=== PATIENT | female | born 1995 | race Caucasian/White ===

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

== ENCOUNTER 2018-05-18 15:33 | Emergency (ER) | payer OTHER ==
[2018-05-18 16:34] LABS: microscopic required? NO
[2018-05-18 16:58] LABS: BASOPHIL % 0.5 % (0-2); PLATELET COUNT 251 x10^3mcL (130-400); RED CELL DISTRIBUTION WIDTH 14.2 % (11.5-14.5)
[2018-05-18 16:59] LABS: urine erythrocyte NEGATIVE (NEGATIVE)
[2018-05-18 17:20] LABS: CALCIUM 9.4 mg/dL (8.5-10.1); CARBON DIOXIDE 25.8 mmol/L (21-32); CHLORIDE SERUM 102 mmol/L (98-107); CREATININE SERUM 0.5 mg/dL (0.6-1.0); GFR1 > 60 mL/min; GLUCOSE SERUM 84 mg/dL (74-106); POTASSIUM SERUM 3.8 mmol/L (3.5-5.1); SODIUM SERUM 138 mmol/L (136-145)
[2018-05-18 17:24] LABS: ALBUMIN 4.7 g/dL (3.4-5.0); ALKALINE PHOSPHATASE 62 U/L (46-116); ALT/SGPT 19 U/L (14-59); AMYLASE 76 U/L (25-115); AST/SGOT 11 U/L (15-37); BILIRUBIN TOTAL 0.5 mg/dL (0.20-1.00); CHOLESTEROL 141 mg/dL (<200); LIPASE 88 IU/L (73-393)
[2018-05-18 17:33] LABS: HDL CHOLESTEROL 82 mg/dL (40-60); TOTAL PROTEIN, SERUM 8.5 g/dL (6.4-8.2)
[2018-05-18 19:28] VITALS: BP 114/75
== END 2018-05-18 19:28 | disposition home or self-care (01) ==
LOC: ED 15:33
PROVIDERS: Emergency Medicine
DX: R10.13 Epigastric pain (principal); R11.10 Vomiting, unspecified
CPT/HCPCS: J1885; J7030

== ENCOUNTER 2019-06-12 08:58 | Emergency (ER) | payer OTHER ==
[~2019-06-12] VITALS: Ht 149.9 cm; Wt 46.7 kg
[2019-06-12 09:09] VITALS: Ht 149.9 cm; Wt 46.7 kg
[2019-06-12 10:09] LABS: CALCIUM 9.6 mg/dL (8.5-10.1); CARBON DIOXIDE 26.9 mmol/L (21-32); CHLORIDE SERUM 105 mmol/L (98-107); CREATININE SERUM 0.5 mg/dL (0.6-1.0); GFR1 > 60 mL/min; GLUCOSE SERUM 104 mg/dL (74-106); POTASSIUM SERUM 4.2 mmol/L (3.5-5.1); SODIUM SERUM 142 mmol/L (136-145)
[2019-06-12 10:14] LABS: ALBUMIN 4.5 g/dL (3.4-5.0); ALKALINE PHOSPHATASE 54 U/L (46-116); ALT/SGPT 18 U/L (14-59); AST/SGOT 12 U/L (15-37); BILIRUBIN TOTAL 0.5 mg/dL (0.20-1.00); TOTAL PROTEIN, SERUM 7.9 g/dL (6.4-8.2)
[2019-06-12 11:46] LABS: AMPHETAMINE QUAL UR NONE DETECTED (See below)
[2019-06-12 12:31] LABS: BASOPHIL % 0.3 % (0-2); PLATELET COUNT 220 x10^3mcL (130-400); RED CELL DISTRIBUTION WIDTH 13.3 % (11.5-14.5)
[2019-06-12 13:39] VITALS: BP 109/70
== END 2019-06-12 13:39 | disposition home or self-care (01) ==
LOC: ED 08:58
PROVIDERS: Emergency Medicine
DX: R07.89 Other chest pain (principal); R20.2 Paresthesia of skin; R11.2 Nausea with vomiting, unspecified
CPT/HCPCS: 36415; Q0092

== ENCOUNTER 2020-03-02 09:11 | Emergency (ER) | payer OTHER ==
[~2020-03-02] VITALS: Ht 124.5 cm; Wt 59.0 kg
[2020-03-02 09:25] VITALS: Ht 124.5 cm; Wt 59.0 kg
[2020-03-02 11:20] LABS: BASOPHIL % 0.6 % (0.2-1.3); PLATELET COUNT 316 x10^3mcL (179-408); RED CELL DISTRIBUTION WIDTH 13.1 % (12.3-17.7)
[2020-03-02 12:15] LABS: rbc morphology (normal/abnorm) NORMAL (NORMAL)
[2020-03-02 13:04] LABS: CALCIUM 10.2 mg/dL (8.5-10.1); CARBON DIOXIDE 18.9 mmol/L (21-32); CHLORIDE SERUM 101 mmol/L (98-107); CREATININE SERUM 0.6 mg/dL (0.6-1.0); GFR1 > 60 mL/min; GLUCOSE SERUM 102 mg/dL (74-106); POTASSIUM SERUM 3.9 mmol/L (3.5-5.1); SODIUM SERUM 139 mmol/L (136-145)
[2020-03-02 13:09] LABS: ALKALINE PHOSPHATASE 54 U/L (46-116); ALT/SGPT 24 U/L (14-59); AST/SGOT 16 U/L (15-37); BILIRUBIN TOTAL 1.27 mg/dL (0.20-1.00)
[2020-03-02 13:13] LABS: ALBUMIN 5.3 g/dL (3.4-5.0); TOTAL PROTEIN, SERUM 8.5 g/dL (6.4-8.2)
[2020-03-02 15:12] VITALS: BP 134/104
== END 2020-03-02 12:40 | disposition home or self-care (01) ==
LOC: ED 09:11
DX: R10.9 Unspecified abdominal pain (principal); R11.2 Nausea with vomiting, unspecified
CPT/HCPCS: J1885; J2550; J2765; J3010; Q0162